=== PATIENT | female | born 1990 | race Caucasian/White ===

== ENCOUNTER 2016-06-29 21:12 | Emergency (ER) | payer MEDICAID ==
[~2016-06-29] VITALS: Ht 154.9 cm; Wt 127.0 kg
[2016-06-29 21:15] VITALS: BP_SYST 135
--- NOTE | 2016-06-29 21:15 | NUR ---
Patient triaged and placed in waiting room. VSS and patient appears in no acute distress at this time. Accompanied by self, awaiting available bed, and MD notified of need for MSE.
--- NOTE | 2016-06-29 23:45 | NUR ---
Pt awake alert oriented x 4. clear speech. Pt complain of left breast pain. Pt stated her breast tissue was tender. No acute distress noted at the time.
--- NOTE | 2016-06-30 00:30 | NUR ---
ER at bedside examining patient.
--- NOTE | 2016-06-30 01:40 | NUR ---
Patient given written and verbal discharge instructions and verbalizes understanding. ER MD discussed with patient the results and treatment provided. Given copies of tests performed in ER. Patient in stable condition. ID arm band removed. No Rx of given. Patient educated on pain management and to follow up with PMD. Pain Scale 0/10 pain level except left reast tender to touch. Opportunity for questions provided and answered.
== END 2016-06-30 01:40 | disposition home or self-care (01) ==
LOC: SED 21:12
DX: N64.4 Mastodynia (principal)
CPT/HCPCS: 81025; 99281

== ENCOUNTER 2017-04-08 09:42 | Emergency (ER) | payer MEDICAID ==
[~2017-04-08] VITALS: Ht 154.9 cm; Wt 127.9 kg
[2017-04-08 09:51] VITALS: BP_SYST 132
[2017-04-08] MEDS ORDERED: KETOROLAC TROMETHAMINE 30 MG VIAL IVP ONE (10:15)
[2017-04-08] MEDS ORDERED: NACL 0.9% 1,000 ML IV ONE (10:15)
[2017-04-08 10:34] LABS: BASOPHILS % (AUTO) 0.3 % (0.0-2.0); EOSINOPHILS # (AUTO) 0.1 K/uL (0.0-0.4); EOSINOPHILS % (AUTO) 1.8 % (0.0-4.0); HEMOGLOBIN 14.5 g/dL (12.0-16.0); LYMPHOCYTES # (AUTO) 3.4 K/uL (1.0-5.5); LYMPHOCYTES % (AUTO) 43.5 % (20.5-51.5); MEAN CORPUSCULAR HEMOGLOBIN 28 pg (27-31); MEAN CORPUSCULAR HGB CONC 33 % (32-36); MEAN CORPUSCULAR VOLUME 84 fL (79.0-98.0); MONOCYTES # (AUTO) 0.5 K/uL (0.0-1.0); MONOCYTES % (AUTO) 5.8 % (1.7-9.3); NEUTROPHILS # (AUTO) 3.8 K/uL (1.8-7.7); NEUTROPHILS % (AUTO) 48.6 % (40.0-70.0); PLATELET COUNT (AUTO) 316 K/uL (130-430); RED BLOOD CELL COUNT(AUTO) 5.26 MIL/uL (4.2-6.2); RED CELL DISTRIBUTION WIDTH 13.9 % (9.0-15.0); WHITE BLOOD COUNT (AUTO) 7.8 K/uL (4.8-10.8)
[2017-04-08 10:41] LABS: CALCIUM 9.8 mg/dL (8.4-11.0); CREATININE 0.57 mg/dL (0.55-1.30)
[2017-04-08 10:51] LABS: ALBUMIN 3.6 g/dL (3.4-4.8); TOTAL BILIRUBIN 0.2 mg/dL (0.0-1.0)
[2017-04-08 12:12] LABS: BILIRUBIN,URINE NEGATIVE (NEGATIVE); BLOOD, URINE 2+ (NEGATIVE); CLARITY/URINE CLEAR (CLEAR); COLOR,URINE YELLOW (YELLOW); GLUCOSE,URINE NEGATIVE (NEGATIVE); KETONES,URINE NEGATIVE (NEGATIVE); LEUKOCYTE ESTERASE ,URINE NEGATIVE (NEGATIVE); NITRITE, URINE NEGATIVE (NEGATIVE); PROTEIN URINE NEGATIVE (NEGATIVE)
[2017-04-08 13:01] LABS: BACTERIA,URINE FEW /HPF (None Seen); MUCUS,URINE 1+ /LPF (None Seen); WBC,URINE 0-3 /HPF (0-3)
[2017-04-08 14:56] VITALS: BP_SYST 125
[2017-04-11 22:14] LABS: CHLAMYDIA TRACHOMATIS NAA Negative (Negative); NEISSERIA GONORRHOEAE NAA Negative (Negative)
== END 2017-04-08 14:55 | disposition home or self-care (01) ==
LOC: SED 09:42
DX: R10.9 Unspecified abdominal pain (principal); R30.0 Dysuria; I10 Essential (primary) hypertension
CPT/HCPCS: 36415; 74176; 80053; 81000; 81025; 83605; 84702; 85025; 87040; 87491; 87591; 96361; 96374; 99285; J1885; J7030

== ENCOUNTER 2021-06-17 18:37 | Emergency (ER) | payer MEDICAID ==
[~2021-06-17] VITALS: Ht 154.9 cm; Wt 136.1 kg
[2021-06-17 18:40] VITALS: BP_SYST 185
--- NOTE | 2021-06-17 18:40 | NUR ---
Patient to ER bed 8 to gown for evaluation. Side rails up.
--- NOTE | 2021-06-17 18:45 | NUR ---
PT CAME IN FROM HOME C/O LOWER BACK PAIN 01/03 SINCE LIFTING A PIECE OF LUGGAGE FROM THR GROUND TO THE BED ON MONDAY. REPORTS TODAY SHE HAS BEEN NAUSEOUS. HAS BEEN TAKING BACLOFEN, IBUPROFEN AND TYLENOL AT HOME WITHOUT RELIEF. PT IS AMBULATORY, AAOX4, VSS
--- NOTE | 2021-06-17 19:14 | NUR ---
REPORT GIVEN TO RADHA FRANCISCO FOR CONTINUING CARE
--- NOTE | 2021-06-17 19:15 | NUR ---
First contact. Pt lying on left side. C/o back pain and nausea at this time.
[2021-06-17] MEDS ORDERED: MORPHINE 4 MG INJ. 4 MG/ML VIAL IM ONE (19:45)
[2021-06-17] MEDS ORDERED: DIAZEPAM 5 MG TABLET (VALIUM) PO ONE (19:45)
[2021-06-17] MEDS ORDERED: IBUP-1969 PO (22:02)
[2021-06-17] MEDS ORDERED: CYCL10TA24 PO (22:02)
[2021-06-17] MEDS ORDERED: OXYC-128 PO (22:02)
[2021-06-17 22:10] VITALS: BP_SYST 142
--- NOTE | 2021-06-17 22:15 | NUR ---
Patient given written and verbal discharge instructions and verbalizes understanding. ER MD discussed with patient the results and treatment provided. Patient in stable condition. ID arm band removed. Rx of ibuprofen, flexeril, and percocet given. Patient educated on pain management and to follow up with PMD.Opportunity for questions provided and answered. Medication side effect fact sheet provided.
== END 2021-06-17 22:15 | disposition home or self-care (01) ==
LOC: SED 18:37
DX: M54.30 Sciatica, unspecified side (principal); Z68.43 Body mass index [BMI] 50.0-59.9, adult; Z87.39 Personal history of other diseases of the musculoskeletal system and connective tissue
CPT/HCPCS: 96372; 99283; J2270

== ENCOUNTER 2022-07-19 13:57 | Emergency (ER) | payer MEDICAID ==
[~2022-07-19] VITALS: Ht 154.9 cm; Wt 145.1 kg
[~2022-07-19 13:57] MED LIST: CYCL10TA24 PO; IBUP-1969 PO; IBUP-1971 PO; OXYC-128 PO; SOM350 PO
[2022-07-19 14:05] VITALS: BP_SYST 145
[2022-07-19] MEDS ORDERED: MORPHINE 4 MG INJ. 4 MG/ML VIAL IM ONE (15:00)
--- NOTE | 2022-07-19 15:34 | NUR ---
called for bed placement. patient is not in waiting room.
--- NOTE | 2022-07-19 15:45 | NUR ---
Pt brought by self, A&Ox4, pt presents to ER with lower back pain, denies trauma, skin pink and warm, cap refill <3, VSS, respirations even and unlabored, will cont to monitor.
--- NOTE | 2022-07-19 16:00 | NUR ---
Dr Pulido evaluating patient at bedside
--- NOTE | 2022-07-19 16:30 | NUR ---
Pt requesting an MRI for the back pain , per Dr Pulido MRI is not available at this time, pt insist she needs MRI, states she is going to other hospital for MRI
[2022-07-19] MEDS ORDERED: TRAM50TA2 PO (16:56)
[2022-07-19] MEDS ORDERED: KETOROLAC TROMETHAMINE 60 MG/2 ML VIAL IM ONE (17:00)
--- NOTE | 2022-07-19 17:24 | NUR ---
Patient given written and verbal discharge instructions and verbalizes understanding. ER MD discussed with patient the results and treatment provided. Patient in stable condition. ID arm band removed. Rx of Tramadol given. Patient educated on pain management and to follow up with PMD. Pain Scale 5/10 . Opportunity for questions provided and answered. Medication side effect fact sheet provided.
[2022-07-19 17:26] VITALS: BP_SYST 145
== END 2022-07-19 17:24 | disposition home or self-care (01) ==
LOC: SED 13:57
DX: M54.50 Low back pain, unspecified (principal); G89.29 Other chronic pain; Z79.899 Other long term (current) drug therapy
CPT/HCPCS: 99284; 84703; 36415; 72100; 96372; J1885; J2270